=== PATIENT | female | born 1940 | race Hispanic/Latino ===

== ENCOUNTER → 2017-11-06 | Outpatient (CLI) | payer MEDICARE ==
[~2017-11-06] MED LIST: ASPI-555 PO; GLIP1TAB6 PO; HYDR25TA PO; LEVO88TA7 PO; LISI40TA4 PO; SIMV40TA59 PO
== END | disposition home or self-care (01) ==
LOC: RAH 08:48
PROVIDERS: ATTEND Family Medicine
DX: Z12.31 Encounter for screening mammogram for malignant neoplasm of breast (principal)
CPT/HCPCS: 77067

== ENCOUNTER → 2019-02-09 | Outpatient (CLI) | payer MEDICARE ==
[~2019-02-09] MED LIST changes: +IOHEXOL-350 50ML VIAL IV ONE
== END | disposition home or self-care (01) ==
LOC: RAH 08:20
PROVIDERS: ATTEND Family Medicine
DX: J98.11 Atelectasis (principal); K80.20 Calculus of gallbladder without cholecystitis without obstruction; I25.10 Atherosclerotic heart disease of native coronary artery without angina pectoris; M47.815 Spondylosis without myelopathy or radiculopathy, thoracolumbar region; J84.10 Pulmonary fibrosis, unspecified
CPT/HCPCS: 71270; Q9967

== ENCOUNTER → 2021-08-23 | Outpatient (CLI) | payer MEDICARE ==
[~2021-08-23] MED LIST changes: -ASPI-555 PO; +ASPI-556 PO; -IOHEXOL-350 50ML VIAL IV ONE; -LISI40TA4 PO; +LISI40TA9 PO
== END | disposition home or self-care (01) ==
LOC: RAH 13:21
PROVIDERS: ATTEND Family Medicine
DX: N64.4 Mastodynia (principal)
CPT/HCPCS: 77066

== ENCOUNTER 2022-04-04 17:40 | Emergency (ER) | payer MEDICARE ==
[~2022-04-04] VITALS: Ht 162.6 cm; Wt 68.9 kg
[2022-04-04] MEDS ORDERED: 0.9%NACL 1000ML 1,000 ML IV ONE (18:00)
[2022-04-04 18:08] LABS: BASOPHILS % (AUTO) 0.6 % (0.0-5.0); EOSINOPHILS % (AUTO) 1.7 % (0.0-8.0); HEMATOCRIT 37.2 % (36-48); MEAN CORPUSCULAR HEMOGLOBIN 26.8 pg (27.0-33.0); MEAN CORPUSCULAR HGB CONC 34.1 g/dL (32.0-36.0); MEAN CORPUSCULAR VOLUME 78.6 fL (79-99); MONOCYTES % (AUTO) 8.4 % (3.0-13.0); NEUTROPHILS % (AUTO) 56.9 % (40.0-77.0); PLATELET COUNT (AUTO) 197 K/uL (130-400); RED BLOOD CELL COUNT(AUTO) 4.73 MIL/uL (4.00-5.50); RED CELL DISTRIBUTION WIDTH 13.3 % (11.0-15.5); WHITE BLOOD COUNT (AUTO) 7.8 K/uL (4.8-10.8)
[2022-04-04 18:22] LABS: ALBUMIN 4.5 g/dL (3.5-5.0); CREATININE 1.2 mg/dL (0.5-1.5); POTASSIUM 3.2 mmol/L (3.5-5.1); TOTAL PROTEIN, SERUM 8.1 g/dL (6.0-8.3)
[2022-04-04 18:32] LABS: APPEARANCE,URINE CLEAR (CLEAR); BILIRUBIN,URINE NEGATIVE (NEGATIVE); COLOR,URINE LIGHT-YELLOW (YELLOW); GLUCOSE, URINE (UA) NEGATIVE (NEGATIVE); KETONES,URINE NEGATIVE (NEGATIVE); LEUKOCYTE ESTERASE ,URINE 25 Leu/uL (NEGATIVE); MUCUS,URINE RARE LPF (None Seen); NITRATE,URINE NEGATIVE (NEGATIVE); OCCULT BLOOD,URINE NEGATIVE (NEGATIVE); PROTEIN,URINE NEGATIVE (NEGATIVE); SQUAMOUS EPITHELIAL CELL,UR RARE /HPF (0-2); UROBILINOGEN,URINE 0.2 mg/dL (0.2-1.0)
[2022-04-04] MEDS ORDERED: LACT10SO5 PO (18:52)
[2022-04-04 19:24] VITALS: BP 134/74
== END 2022-04-04 19:25 | disposition home or self-care (01) ==
LOC: EDH 17:40
DX: K59.00 Constipation, unspecified (principal); E86.0 Dehydration; N39.0 Urinary tract infection, site not specified; E11.9 Type 2 diabetes mellitus without complications; E78.00 Pure hypercholesterolemia, unspecified; I10 Essential (primary) hypertension; Z79.82 Long term (current) use of aspirin; Z79.899 Other long term (current) drug therapy; Z79.84 Long term (current) use of oral hypoglycemic drugs; Z98.890 Other specified postprocedural states
CPT/HCPCS: 99284; 74176; 96360; 80053; 85025; 81001; 36415; J7030